=== PATIENT | male | born 1950 | race Caucasian/White ===

== ENCOUNTER 2018-06-11 | Emergency (ER) | payer OTHER, MEDICAID ==
--- NOTE | 2018-06-11 00:23 | EDPHY ---
H & P Stated Complaint: frostbite of fingers and toes Time Seen by Provider: 06/11/18 00:23 HPI/ROS: HPI CHIEF COMPLAINT: [ ] HISTORY OF PRESENT ILLNESS: [Need 4: Location, Duration, Severity, Quality, Context, Timing Modifying Factors, Associated S&S] Past Medical History: Past Surgical History: Social History: Family History: ROS REVIEW OF SYSTEMS: 10 Systems were reviewed and negative with the exception of the elements mentioned in the history of present illness. Exam Constitutional triage nursing summary reviewed, vital signs reviewed, awake/ alert. Eyes normal conjunctivae and sclera, EOMI, PERRLA. HENT normal inspection, atraumatic, moist mucus membranes, no epistaxis, neck supple/ no meningismus, no raccoon eyes. Respiratory clear to auscultation bilaterally, normal breath sounds, no respiratory distress, no wheezing. Cardiovascular rate normal, regular rhythm, no murmur, no edema, distal pulses normal. Gastrointestinal soft, non-tender, no rebound, no guarding, normal bowel sounds, no distension, no pulsatile mass. Genitourinary no CVA tenderness. Musculoskeletal no midline vertebral tenderness, full range of motion, no calf swelling, no tenderness of extremities, no meningismus, good pulses, neurovascularly intact. Skin pink, warm, & dry, no rash, skin atraumatic. Neurologic awake, alert and oriented x 3, AAOx3, moves all 4 extremities equally, motor intact, sensory intact, CN II-XII intact, normal cerebellar, normal vision, normal speech. Psychiatric normal mood/affect. Heme/Lymph/Immune no lymphadenopathy. Differential Diagnosis: Medical Decision Making: Re-evaluation: Source: Patient - Personal History Current Tetanus/Diphtheria Vaccine: Yes Current Tetanus Diphtheria and Acellular Pertussis (TDAP): Yes Tetanus Vaccine Date: 06/04/12 - Medical/Surgical History Hx Asthma: No Hx Chronic Respiratory Disease: No Hx Diabetes: No Hx Cardiac Disease: No Hx Renal Disease: No Hx Cirrhosis: No Hx Alcoholism: No Hx HIV/AIDS: No Hx Splenectomy or Spleen Trauma: No Other PMH: hep C. HTN. left foot surgery 06/08. ongoing problems, in wheelchair. herniated disk in lumbar. plantar faciatis - Social History Smoking Status: Current every day smoker Constitutional: Initial Vital Signs Temperature (C) 36.4 C 06/11/18 00:01 Heart Rate 86 06/11/18 00:01 Respiratory Rate 16 06/11/18 00:01 Blood Pressure 183/107 H 06/11/18 00:01 O2 Sat (%) 96 06/11/18 00:01 O2 Delivery Mode Room Air Allergies/Adverse Reactions: Penicillins Allergy (Verified 06/11/18 00:06) Home Medications: Medication Instructions Recorded Aspirin 325 mg (*) 06/11/18 Departure - Departure Condition: Good Referrals: NONE *PRIMARY CARE P,. [Primary Care Provider] - As per Instructions
[2018-06-11 01:14] LABS: PLATELET COUNT 213 10^3/uL (150-400)
--- NOTE | 2018-06-11 01:39 | EDPHY ---
H & P Stated Complaint: frostbite of fingers and toes - Personal History Current Tetanus/Diphtheria Vaccine: Yes Current Tetanus Diphtheria and Acellular Pertussis (TDAP): Yes Tetanus Vaccine Date: 06/04/12 - Medical/Surgical History Hx Asthma: No Hx Chronic Respiratory Disease: No Hx Diabetes: No Hx Cardiac Disease: No Hx Renal Disease: No Hx Cirrhosis: No Hx Alcoholism: No Hx HIV/AIDS: No Hx Splenectomy or Spleen Trauma: No Other PMH: hep C. HTN. left foot surgery 06/08. ongoing problems, in wheelchair. herniated disk in lumbar. plantar faciatis - Social History Smoking Status: Current every day smoker Time Seen by Provider: 06/11/18 00:23 HPI/ROS: Chief complaint: Suicidal ideation with plan. History of present illness: This is a 68-year-old male who is currently homeless who presents to the emergency department this evening stating he is feeling suicidal. He states when the snow meld he is going to climb the 3rd flatter in jump off of it to his . He states he has chronic pain throughout his body secondary to frostbite, history of fractures, herniated discs. He states he is tired of dealing with the pain. He states he is also frustrated with his lack of options including doctors he is seen and places he has been staying including the correction. He denies any acute illness or injury to me. No homicidal ideation. Review of systems: A 10 point review of systems was obtained and other than described above was negative (Sonny Tay) - Physical Exam Exam: General Appearance: Alert, nontoxic. Eyes: Pupils equal and round no pallor or injection. ENT, Mouth: Mucous membranes moist. Respiratory: There are no retractions, lungs are clear to auscultation. Cardiovascular: Regular rate and rhythm. Gastrointestinal: Abdomen is soft and nontender, no masses, bowel sounds normal. Neurological: Alert. Strength and sensation intact and symmetrical. Skin: Warm and dry, no rashes. Musculoskeletal: Neck is supple nontender. Extremities are symmetrical, full range of motion. Obvious deformities to his toenails. Psychiatric: Patient is upset, aggressive and swearing at me. (Sonny Tay) Constitutional: Initial Vital Signs Temperature (C) 36.4 C 06/11/18 00:01 Heart Rate 86 06/11/18 00:01 Respiratory Rate 16 06/11/18 00:01 Blood Pressure 183/107 H 06/11/18 00:01 O2 Sat (%) 96 06/11/18 00:01 O2 Delivery Mode Room Air Allergies/Adverse Reactions: Penicillins Allergy (Verified 06/11/18 00:06) Home Medications: Medication Instructions Recorded Aspirin 325 mg (*) 06/11/18 Medical Decision Making ED Course/Re-evaluation: Patient seen under the supervision of my secondary supervising physician Dr. Wolf Meraz. Patient presents to the emergency department with suicidal ideation with plan. He is medically evaluated and cleared for psychiatric evaluation. This is pending at time of dictation. Care of patient is turned over to my attending physician Dr. Wolf Meraz at end of shift, approximately 0100 hr. (Sonny Tay) 0700AM: Signed over to Dr. Frausto. (Wolf Meraz) Differential Diagnosis: Included but not limited to depression, bipolar, substance abuse, malingering ( Sonny Tay) - Data Points Laboratory Results: Laboratory Results 06/11/18 01:05 06/11/18 01:05 06/11/18 06/11/18 06/11/18 01:05 01:05 00:56 WBC 9.99 10^3/uL H 10^3/uL (3.80-9.50) RBC 4.75 10^6/uL 10^6/uL (4.40-6.38) Hgb 15.3 g/dL g/dL (13.7-17.5) Hct 44.5 % % (40.0-51.0) MCV 93.7 fL fL (81.5-99.8) MCH 32.2 pg pg (27.9-34.1) MCHC 34.4 g/dL g/dL (32.4-36.7) RDW 13.7 % % (11.5-15.2) Plt Count 213 10^3/uL 10^3/uL (150-400) MPV 10.3 fL fL (8.7-11.7) Neut % (Auto) 50.9 % % (39.3-74.2) Lymph % (Auto) 34.9 % % (15.0-45.0) Beltrami % (Auto) 9.4 % % (4.5-13.0) Eos % (Auto) 3.4 % % (0.6-7.6) Baso % (Auto) 1.0 % % (0.3-1.7) Nucleat RBC Rel Count 0.0 % % (0.0-0.2) Absolute Neuts (auto) 5.08 10^3/uL 10^3/uL (1.70-6.50) Absolute Lymphs (auto) 3.49 10^3/uL H 10^3/uL (1.00-3.00) Absolute Monos (auto) 0.94 10^3/uL H 10^3/uL (0.30-0.80) Absolute Eos (auto) 0.34 10^3/uL 10^3/uL (0.03-0.40) Absolute Basos (auto) 0.10 10^3/uL 10^3/uL (0.02-0.10) Absolute Nucleated RBC 0.00 10^3/uL 10^3/uL (0-0.01) Immature Gran % 0.4 % % (0.0-1.1) Immature Gran # 0.04 10^3/uL 10^3/uL (0.00-0.10) Sodium 142 mEq/L mEq/L (135-145) Potassium 4.2 mEq/L mEq/L (3.3-5.0) Chloride 109 mEq/L mEq/L (97-110) Carbon Dioxide 21 mEq/l L mEq/l (22-31) Anion Gap 12 mEq/L mEq/L (6-14) BUN 25 mg/dL H mg/dL (7-23) Creatinine 1.1 mg/dL mg/dL (0.7-1.3) Estimated GFR > 60 Glucose 89 mg/dL mg/dL (70-100) Calcium 9.2 mg/dL mg/dL (8.5-10.4) Urine Opiates Screen NEGATIVE (NEGATIVE) Urine Barbiturates NEGATIVE (NEGATIVE) Ur Phencyclidine Scrn NEGATIVE (NEGATIVE) Ur Amphetamine Screen NEGATIVE (NEGATIVE) U Benzodiazepines Scrn NEGATIVE (NEGATIVE) Urine Cocaine Screen NEGATIVE (NEGATIVE) U Marijuana (THC) Screen NON-NEGATIVE H (NEGATIVE) Ethyl Alcohol 162 mg/dL H mg/dL (0-10) Departure - Departure Clinical Impression: Suicidal ideation Condition: Good Referrals: NONE *PRIMARY CARE P,. [Primary Care Provider] - As per Instructions
[2018-06-11 08:00] VITALS: BP 160/96
--- NOTE | 2018-06-11 12:23 | ASMTTCLDSP ---
TLC Discharge Disposition Disposition: Answers: Discharge If Answers: Yes DISCHARGED: Patient/family given suicide hotline info & SAMHSA brochure? Disposition Notes: Notes: Pt was given local hotline information and SAMHSA brochure After an Attempt and encouraged to follow up with [facility], however, pt stated having no desire to seek help with [facility]. Discharge Concerns/Recommendations: Notes: In consultation with [facility] ED physician, Carter España MD, and on-call psychiatrist, Jose Fuchs MD, both concurred that pt does not appear to meet 27-65 criteria requiring psychiatric hospitalization as pt does not appear to be an imminent risk of harm to self/others/gravely disabled due to a mental illness condition. Was patient given the Answers: Not applicable Inpatient Behavioral Health Prohibited Belongings List while in the ED? Date Signed: 06/11/2018 12:23 PM Electronically Signed By:Ad Parnell
--- NOTE | 2018-06-11 12:23 | ASMTTLCEVL ---
[facility] Evaluation - Basic Information Evaluation Start Date and 06/11/2018 11:00 AM Time Hospital Status Answers: Voluntary Patient statement Notes: Im not an alcoholic. If I were, Id already be by now. Akua got this broken ankle from years ago, plantar fasciitis, and frostbite from 5 years ago. I [facility] these [facility] mites [facility] but the last time I was at the penitentiary was 11/29/17. Narrative Notes: Pt is a 68 yo, single, homeless, unemployed, male, with long history of alcohol use disorder severe, self-presented to [facility] ED last night on a voluntary basis, stating he was having suicidal ideation with plans to jump from the peak of the third flat[place] in [place] once the snow melts. Pt was placed on medical detainer pending medical clearance, sobriety, and evaluation. BAL upon arrival was .162 at 0105 hrs this morning. UDS positive for marijuana. Pt breathlizer at 1100 hrs was zero and MH interview commenced. Pt appeared disheveled but clean shaven. He laughed at times when talking about circumstances in which an older brother had gotten into a motorcycle accident in 2000 at [facility] in [facility]. Pt endorsed nearly all maximum items on BDI/BSS questionnaires, which appeared to be exaggerating symptoms. Diagnosis History Notes: Alcohol use disorder, severe. Prior suicide attempts Notes: Pt stated prior suicide attempt over 20 years ago. Did not elaborate with additional information. Prior hospitalizations Notes: Pt denied prior history of psychiatric hospitalizations or rehabs. He reported having been to the [facility] before but could not recall date. [facility] reported he was last seen at [facility] 11/11/17. Treatment Responses Notes: N/A. History of violence Notes: None reported. Therapist: None. Psychiatrist: None. Medications (name, dosage, route, freq uency) Notes: None. Allergies/Reaction Notes: Penicillin. Sleep Notes: Somewhat decreased but baseline. Pt slept throughout the night while in the ED and was not administered any medications while in the ED. Appetite Notes: Decreased but baseline. Medical/Surgical history Notes: Significant for past history of chronic pain, fractures, herniated discs, frostbite to left hand 5 years ago. Substance use history (frequency, intensity, his tory, duration) Notes: Pt reported first trying alcohol at age 16. Pt stated it was problematic since his teen years. Pt also stated Im not an alcoholic proof is that Im still alive. Pt appeared to have no insight into alcoholism and stated no desire to consider the role of alcohol consumption in his life. Pt stated he didnt know how much alcohol he consumes daily. BAL was .162 at 0105 hrs. UDS results positive for marijuana. Pt reported he smokes marijuana, but minimized use by stating not very much, with last reported used being 2 weeks ago. Pt denied any other illicit substance use history. Family composition Notes: Parents are . Pt stated that he had one brother that in 2000 from a motorcycle accident at [facility] in [facility]. He reported having a brother that lives in [place] and a brother that lives in [place]. He reported having 4 sisters. He stated I dont want to ever see any of them. One of my brothers was responsible for me being homeless. Need for family Answers: No participation in patient's care Family psychiatric/substance abuse history Notes: Pt denied any family history of mental illness or substance abuse problems. Developmental history Notes: Pt reported being born and raised in [place]. He denied any childhood history of TBIs, LOC or concussions. Pt denied any childhood history of physical, emotional or sexual abuse/trauma. Abuse concerns Answers: None Marital status/children Notes: Pt is single, never , no dependents. Living situation Notes: Pt reported being homeless since October 11, 2004. Sexual history/orientation Notes: Not active. Heterosexual. Peer support/family strengths Notes: None identified. Education level/history Notes: Pt reported having graduated from [employer]. Work history Notes: Pt is unemployed. He stated that he had taken his medical records to Social Security to apply for disability 5 years ago but was denied. Notes: None. Legal Notes: Pt reported a history of obtaining 6 DUIs three in 1975, one in 1976, 1985 and 2000. Pentecostal/Spiritual Notes: None identified which would impact treatment. Leisure Notes: "Drinking". Collateral Notes: No outside emergency contact information provided for collateral. Patient's strengths Answers: Artistic/Creative/Musical (Please select at least TWO strengths): Willingness TLC Evaluation - Mental Status Exam Appearance: Answers: Inappropriate Unclean Unkempt Disheveled Eye Contact: Answers: Intermittent Mood: Answers: Euthymic Affect: Answers: Calm Cheerful Behavior: Answers: Cooperative Manipulative Passive Resistive to Care Speech: Answers: Relevant Logical Clear Coherent Thought Process: Answers: Organized Oriented Alert Intact Insight: Answers: Poor Judgement: Answers: Poor Depression Answers: Diminished Interest Signs/Symptoms: Diminished Pleasure Sad Mood Hallucinations: Answers: None Current Stage of Change Answers: Precontemplation Pt reported to have Answers: Yes suicidal/self-injuring ideation/behavior? Pt reported to be making Answers: No suicidal/self-injuring threats? Pt reported to have Answers: No aggression/assault ideation/behavior? Pt reported to be making Answers: No aggression/assault threats? Pt exhibits inability to Answers: No care for self/grave disability? Ideation/behavior is Answers: No chronic? Patient has a specific Answers: No plan? Pt has access to means to Answers: No execute the plan? Ideation involves Answers: No serious/lethal intent? Ideation has Answers: No delusional/hallucinatory content? History of Answers: No suicidal/self-injuring ideation, behavior, or threats? History of Answers: No aggressive/assaultive ideation, behavior, or threats? History of serious Answers: No physical harm to self/others while in treatment setting? [facility] Evaluation - Suicide/Homicide Risk Suicide Risk Factors: Answers: < 20 or > 40 Years of Age Alcohol/Heavy Drug Use Anhedonia Cluster "B" D/O or Traits Financial Difficulties Inadequate Social Support Intoxication Lack of Pentecostal Support Lack of Social Support Lack/Loss of Employment Single Unstable Living Situation Homicide/violence risk Answers: None factors: Current Suicidal Answers: Yes Ideation? Current Suicidal Ideation Answers: No in the Past 48 Hours? Current Suicidal Ideation Answers: No in the Past Month? Current Suicidal Answers: No Ideation, Worst Ever? Suicide Internal Answers: Absence of Psychosis Protective Factors: Suicide External Answers: None Protective Factors: Ranking of patient's Answers: Low suicidal risk: Ranking of patient's Answers: Low homicidal risk: TLC Evaluation - Wrap-up BDI Total Score: 62 BDI Question #2 Score: 3 BDI Question #9 Score: 3 BSS Total Score: 41 AXIS I Diagnosis (include DSM-V and ICD-10 codes), must also be entered in [employer], which is the source of truth. Notes: Alcohol Intoxication, with use disorder, moderate/severe 303.00 (F10.229) Cannabis Use Disorder, moderate 304.30 (F12.20) Malingering V65.2 (Z76.5) In consultation with [facility] ED physician, Carter España MD, and on-call psychiatrist, Jose Fuchs MD, both concurred that pt does not appear to meet 27-65 criteria requiring psychiatric hospitalization as pt does not appear to be an imminent risk of harm to self/others/gravely disabled due to a mental illness condition. Evaluation End Date and 06/11/2018 11:15 AM Time (HH:KAMRAN): Date Signed: 06/11/2018 12:22 PM Electronically Signed By:Ad Parnell
== END 2018-06-11 11:55 | disposition home or self-care (01) ==
DX: R45.851 Suicidal ideations (principal); F10.20 Alcohol dependence, uncomplicated; G89.29 Other chronic pain; M72.2 Plantar fascial fibromatosis; F17.200 Nicotine dependence, unspecified, uncomplicated; Z87.81 Personal history of (healed) traumatic fracture; Z59.0 Homelessness
CPT/HCPCS: 80305; G0480

== ENCOUNTER 2018-07-19 01:07 | Emergency (ER) | payer OTHER, MEDICAID ==
[2018-07-19] MEDS ORDERED: PERMETHRIN 5% 60 GM CREAM TP ONE (01:08)
--- NOTE | 2018-07-19 01:09 | EDPHY ---
H & P Time Seen by Provider: 07/19/18 01:09 HPI/ROS: HPI CHIEF COMPLAINT: Mites all over, bugs all over. HISTORY OF PRESENT ILLNESS: 68-year-old male, presents emergency room with bug bites and spider mites all over per the patient. Patient states being tacked by bites. He arrived to emergency room by private vehicle he is homeless. He went to the [employer] shower and showered off. He denies any other complaints. Past Medical History: Denies significant medical history does not take any daily medication Past Surgical History: Denies surgical history Social History: Denies drugs alcohol tobacco. Homeless. Family History: Noncontributory ROS REVIEW OF SYSTEMS: 10 Systems were reviewed and negative with the exception of the elements mentioned in the history of present illness. Exam Constitutional triage nursing summary reviewed, vital signs reviewed, awake/ alert. Eyes normal conjunctivae and sclera, EOMI, PERRLA. HENT normal inspection, atraumatic, moist mucus membranes, no epistaxis, neck supple/ no meningismus, no raccoon eyes. Respiratory clear to auscultation bilaterally, normal breath sounds, no respiratory distress, no wheezing. Cardiovascular rate normal, regular rhythm, no murmur, no edema, distal pulses normal. Gastrointestinal soft, non-tender, no rebound, no guarding, normal bowel sounds, no distension, no pulsatile mass. Genitourinary no CVA tenderness. Musculoskeletal no midline vertebral tenderness, full range of motion, no calf swelling, no tenderness of extremities, no meningismus, good pulses, neurovascularly intact. Skin no evidence of active bites on skin, no active bugs seen, pink, warm, & dry, no rash, skin atraumatic. Neurologic awake, alert and oriented x 3, AAOx3, moves all 4 extremities equally, motor intact, sensory intact, CN II-XII intact, normal cerebellar, normal vision, normal speech. Psychiatric normal mood/affect. Heme/Lymph/Immune no lymphadenopathy. Differential Diagnosis: Plan for this patient permethrin cream, shower here in emergency room. I do recommend he cleans his clothes with hot water. Return emergency room if worsening symptoms he is comfortable this plan. Source: Patient - Personal History Tetanus Vaccine Date: 06/04/12 - Medical/Surgical History Hx Asthma: No Hx Chronic Respiratory Disease: No Hx Diabetes: No Hx Cardiac Disease: No Hx Renal Disease: No Hx Cirrhosis: No Hx Alcoholism: No Hx HIV/AIDS: No Hx Splenectomy or Spleen Trauma: No Other PMH: hep C. HTN. left foot surgery 06/08. ongoing problems, in wheelchair. herniated disk in lumbar. plantar faciatis - Social History Smoking Status: Current every day smoker Allergies/Adverse Reactions: Penicillins Allergy (Verified 06/11/18 00:06) Home Medications: Medication Instructions Recorded Aspirin 325 mg (*) 06/11/18 Departure - Departure Disposition: Home, Routine, Self-Care Clinical Impression: Bug bites Qualifiers: Encounter type: initial encounter Qualified Code(s): W57.XXXA - Bitten or stung by nonvenomous insect and other nonvenomous arthropods, initial encounter Condition: Good Instructions: Insect Bite or Sting (ED), Bed Bugs (ED) Referrals: Yeimy Rice [Primary Care Provider] - As per Instructions
[2018-07-19 01:45] VITALS: BP 180/100
== END 2018-07-19 02:30 | disposition home or self-care (01) ==
DX: L98.9 Disorder of the skin and subcutaneous tissue, unspecified (principal); W57.XXXA Bitten or stung by nonvenomous insect and other nonvenomous arthropods, initial encounter; Z59.0 Homelessness

== ENCOUNTER 2018-11-29 20:43 | Emergency (ER) | payer OTHER, MEDICAID ==
[2018-11-29 20:49] VITALS: BP 181/144
--- NOTE | 2018-11-29 20:49 | EDPHY ---
HPI/HX/ROS/PE/MDM Narrative: CHIEF COMPLAINT: Alcohol intoxication HPI: The patient is a 68-year-old male with a history of alcoholism and hypertension. He was brought to emergency department by ambulance after being found down intoxicated outside of a local [place]. The patient admits to drinking alcohol. He denies head injury but EMS notes a small abrasion to his right eyebrow. The patient was brought to the emergency department secondary to this abrasion as well as the fact that his blood pressure was quite elevated in the field approximately 200/110. The patient denies any specific complaints and states that he wants to punch someone and will do it while he is in the emergency department. REVIEW OF SYSTEMS: Aside from elements discussed in the HPI, a comprehensive 10-point review of systems was reviewed and is negative. This is limited by severe intoxication. PMH: Alcoholism, hypertension SOCIAL HISTORY: Homeless, history of alcohol abuse. PHYSICAL EXAM: General: Patient is appears severely intoxicated. Smells of alcohol. He is agitated and minimally cooperative. Head: A small abrasion is present over the right eyebrow. Otherwise atraumatic. ENT: Eyes are normal to inspection. ENT inspection normal. Pupils are mid position and reactive bilaterally. Neck: Normal inspection. Full range of motion. Respiratory: No respiratory distress. Breath sounds normal bilaterally. Cardiovascular: Regular rate and rhythm. Normal heart sounds. Neuro: No focal motor or sensory deficits. ED Course: Review of the patient's previous charts indicates that his baseline blood pressure is quite elevated, usually in the 180 systolic range. MDM: This patient presents severely intoxicated, threatening EMS and ED staff on arrival and throughout ED stay. I have low suspicion for intracranial bleed, and patient is uncooperative and potentially violent. I would have to sedate him and possibly restrain him to undergo a CTH which he does not want. We will transfer him to the [facility]. General Initial Vital Signs: Initial Vital Signs Temperature (C) 36.8 C 11/29/18 20:47 Heart Rate 117 H 11/29/18 20:47 Respiratory Rate 16 11/29/18 20:47 Blood Pressure 181/144 H 11/29/18 20:47 O2 Sat (%) 96 11/29/18 20:47 O2 Delivery Mode Room Air Allergies/Adverse Reactions: Penicillins Allergy (Verified 11/29/18 20:46) Home Medications: Medication Instructions Recorded NK [No Known Home Meds] 11/29/18 Departure - Departure Disposition: Home, Routine, Self-Care Clinical Impression: Alcoholic intoxication, Alcohol dependence Condition: Good Instructions: Abuse of Alcohol (ED) Additional Instructions: Please refrain from abusing alcohol. Return to the emergency department immediately for fever, vomiting, confusion, headache, abdominal pain or other worsening of condition. Followup with your primary care physician within 72 hours for reevaluation. Referrals: Patient,NotPresent [Primary Care Provider] - As per Instructions
[2018-11-29] MEDS ORDERED: CHLORDIAZEPOXIDE 25MG PREPK#6 BTL TAKEHOME ONE (20:54)
== END 2018-11-29 20:58 | disposition home or self-care (01) ==
LOC: EDUNIT#
DX: F10.220 Alcohol dependence with intoxication, uncomplicated (principal); S00.211A Abrasion of right eyelid and periocular area, initial encounter; I10 Essential (primary) hypertension; W19.XXXA Unspecified fall, initial encounter; Y92.212 Middle school as the place of occurrence of the external cause